=== PATIENT | male | born 1945 | race Caucasian/White ===

== ENCOUNTER → 2024-07-08 14:37 | Outpatient (REF) | payer MEDICARE, SELFPAY | LOC: RCS 14:37 | PROVIDERS: ATTENDING PHYSICIAN Internal Medicine Cardiovascular Disease | DX: Z95.2 Presence of prosthetic heart valve (principal) | CPT/HCPCS: 93306 ==

== ENCOUNTER → 2025-01-20 09:31 | Outpatient (REF) | payer MEDICARE, SELFPAY ==
[2025-01-20 12:22] LABS: Blood Urea Nitrogen 15 mg/dl (9-20); Calcium 9.9 mg/dl (8.4-10.2); Carbon Dioxide 27 mmol/L (22-30); Chloride 102 mmol/L (98-107); Glucose 108 mg/dl (70-99); Potassium 4.5 mmol/L (3.5-5.1); Sodium 137 mmol/L (135-145); eGFR > 60.00
[2025-01-20 12:51] LABS: PSA, Total - Diagnostic 7.92 ng/ml (0.0-4.0)
== END ==
LOC: HWLAB 09:31
PROVIDERS: ATTENDING PHYSICIAN Urology; FAMILY PHYSICIAN Registered Nurse
DX: R31.0 Gross hematuria (principal); N40.1 Benign prostatic hyperplasia with lower urinary tract symptoms
CPT/HCPCS: 36415; 80048; 84153

== ENCOUNTER → 2025-01-22 10:13 | Outpatient (REF) | payer MEDICARE, SELFPAY | LOC: RAD 10:13 | PROVIDERS: ATTENDING PHYSICIAN Urology; FAMILY PHYSICIAN Registered Nurse | DX: R31.0 Gross hematuria (principal) | CPT/HCPCS: 74178; Q9967 ==

== ENCOUNTER → 2025-05-14 13:48 | Outpatient (REF) | payer MEDICARE, SELFPAY | LOC: MRI 13:48 | PROVIDERS: ATTENDING PHYSICIAN Urology; FAMILY PHYSICIAN Registered Nurse | DX: R97.20 Elevated prostate specific antigen [PSA] (principal) | CPT/HCPCS: 72197; 76014; 76015; A9575 ==

== ENCOUNTER → 2025-07-28 12:42 | Outpatient (REF) | payer MEDICARE, SELFPAY ==
--- NOTE | 2025-07-28 13:39 | CARDSERVLU ---
Echocardiogram with Lumason completed after protocol screening completed. Allergies verified.
Patent IV site: __new start 1st attempt 22P RAC/FA___
IV site flushed with 0.9% NaCl pre and post administration.
Diluted bolus method utilized to enhance visualization of ventricular gallardo.
Total volume given: __4.5__ mL in divided doses under direction echosonographer
site dcd at completion of test.
Patient tolerated all procedures well without complications.
== END ==
LOC: RCS 12:42
PROVIDERS: ATTENDING PHYSICIAN Internal Medicine Cardiovascular Disease
DX: I48.0 Paroxysmal atrial fibrillation (principal); I42.0 Dilated cardiomyopathy; I50.32 Chronic diastolic (congestive) heart failure
CPT/HCPCS: 93307; Q9957